=== PATIENT | male | born 2000 | race Hispanic/Latino ===

== ENCOUNTER 2023-04-02 03:41 | Emergency (ER) | payer SELFPAY ==
[~2023-04-02] VITALS: Ht 175.3 cm; Wt 59.0 kg
[2023-04-02 03:54] VITALS: O2SAT 99
[2023-04-02] MEDS ORDERED: ACETAMINOPHEN 325 MG TAB PO ONE (04:00)
[2023-04-02] MEDS ORDERED: DEXAMETHASONE SOD PHOS 10 MG/1 ML VIAL ONE (04:36)
[2023-04-02 04:57] VITALS: TEMP 99.2
== END 2023-04-02 05:06 | disposition home or self-care (01) ==
LOC: ER 03:45
DX: R50.9 Fever, unspecified (principal); B34.9 Viral infection, unspecified; Q25.6 Stenosis of pulmonary artery; Z11.52 Encounter for screening for COVID-19; F17.210 Nicotine dependence, cigarettes, uncomplicated
CPT/HCPCS: 71045; 87400; 99283; J1100; U0002